=== PATIENT | female | born 1980 | race Asian ===

== ENCOUNTER 2020-12-29 10:53 | Day surgery (SDC) | payer OTHER, SELFPAY ==
[~2020-12-29] VITALS: Ht 157.5 cm; Wt 72.6 kg
[2020-12-29] MEDS ORDERED: MIDAZOLAM 5 MG/5 ML VIAL ONE (12:52)
[2020-12-29] MEDS ORDERED: fentaNYL citrate 0.05 MG/ML VIAL ONE (12:52)
[2020-12-29] MEDS ORDERED: diphenhydrAMINE 50 MG/ML VIAL ONE (12:52)
[2020-12-29] MEDS ORDERED: fentaNYL citrate 0.05 MG/ML VIAL IVP ONE (14:40)
[2020-12-29] MEDS ORDERED: MIDAZOLAM 2 MG/2 ML VIAL IVP ONE (14:40)
== END 2020-12-29 14:00 | disposition home or self-care (01) ==
LOC: MDS 10:53 → MMU 10:53 → MDS 14:00
PROVIDERS: ATTEND Internal Medicine Gastroenterology
DX: Z12.11 Encounter for screening for malignant neoplasm of colon (principal); Z80.0 Family history of malignant neoplasm of digestive organs; K21.9 Gastro-esophageal reflux disease without esophagitis; K31.89 Other diseases of stomach and duodenum; Z20.822 Contact with and (suspected) exposure to COVID-19
CPT/HCPCS: 43239; 45378; 81025; 88305; 88312; 88313; 88342; J2250; J3010; U0003; J1200

== ENCOUNTER 2022-02-07 10:27 | Day surgery (SDC) | payer OTHER ==
[~2022-02-07] VITALS: Ht 157.5 cm; Wt 72.6 kg
[2022-02-07] MEDS ORDERED: fentaNYL citrate 0.05 MG/ML VIAL ONE (12:00)
[2022-02-07] MEDS ORDERED: diphenhydrAMINE 50 MG/ML VIAL ONE (12:00)
[2022-02-07] MEDS ORDERED: MIDAZOLAM 5 MG/5 ML VIAL ONE (12:00)
[2022-02-07] MEDS ORDERED: MIDAZOLAM 5 MG/5 ML VIAL IV ONE (14:25)
[2022-02-07] MEDS ORDERED: fentaNYL citrate 0.05 MG/ML VIAL IVP ONE (14:25)
== END 2022-02-07 14:00 | disposition home or self-care (01) ==
LOC: MDS 10:27 → MMU 10:57 → MDS 14:00
PROVIDERS: ATTEND Internal Medicine Gastroenterology
DX: Z09 Encounter for follow-up examination after completed treatment for conditions other than malignant neoplasm (principal); R13.10 Dysphagia, unspecified; Z80.0 Family history of malignant neoplasm of digestive organs; E11.9 Type 2 diabetes mellitus without complications; I10 Essential (primary) hypertension; K21.9 Gastro-esophageal reflux disease without esophagitis; R74.01 Elevation of levels of liver transaminase levels; Z79.84 Long term (current) use of oral hypoglycemic drugs; Z79.899 Other long term (current) drug therapy
CPT/HCPCS: 43239; 45378; 88305; 88312; 88313; 88342; J2250; J3010; J1200